=== PATIENT | female | born 1955 | race Two or more races ===

== ENCOUNTER 2024-11-10 19:52 | Emergency (ER) | payer OTHER ==
[~2024-11-10] VITALS: Ht 160 cm; Wt 88.5 kg
[2024-11-10] MEDS ORDERED: METHYLPREDNISOLONE SOD SUCC 125 MG VIAL IV ONE (22:00)
[2024-11-10] MEDS ORDERED: LEVALBUTEROL HCL 1.25 MG/3 ML SOLUTION IH SCH (22:00)
[2024-11-10] MEDS ORDERED: GUAIFENESIN/DEXTROMETHORPHAN 10ML BLIST.PACK PO ONE (22:15)
[2024-11-10 23:29] LABS: HEMATOCRIT 42.5 % (36.0-45.00); HEMOGLOBIN 14.5 g/dL (12.0-15.00); MEAN CELL VOLUME 94.6 fL (80.00-100.00); MEAN CORPUSCULAR HEMOGLOBIN 32.2 pg (27.00-32.0); MEAN CORPUSCULAR HGB CONC 34.1 g/dl (32.0-36.0); PLATELET COUNT 199 K/uL (150-450); RED BLOOD COUNT 4.49 M/uL (4.00-6.00); RED CELL DISTRIBUTION WIDTH 13.5 % (11.5-14.5)
[2024-11-11 01:29] LABS: ABG PH 7.406 (7.35-7.45); ABG PO2 66.6 mmHg (80-100); ABG pCO2 37.2 mmHg (35-45); SaO2 92.9 %
[2024-11-11 01:30] LABS: BASE EXCESS -1.4 mmol/l; BICARBONATE 22.8 mmol/l (23-25); allen test SATISFACTORY; o2 21 %; puncture site RADIAL LEFT
== END 2024-11-11 02:47 | disposition home or self-care (01) ==
LOC: ER 19:54
PROVIDERS: General Practice
DX: J45.909 Unspecified asthma, uncomplicated (principal)
CPT/HCPCS: 36415; 82803; 94640; 96365; 99284; J3490